=== PATIENT | female | born 2000 | race Caucasian/White ===

== ENCOUNTER 2024-03-21 07:51 | Emergency (ER) | payer OTHER ==
[~2024-03-21] VITALS: Ht 154.9 cm; Wt 64.1 kg
[2024-03-21 08:32] LABS: BASO # 0.1 10^3/uL (0.0-0.2); BASO % 0.6 % (0.0-1.0); EOS % 0.4 % (0.0-3.0); HEMATOCRIT 42.5 % (36.0-47.0); HEMOGLOBIN 13.8 g/dl (12.0-15.5); LYMPH # 2.2 10^3/uL (1.5-5.0); LYMPH % 26.4 % (24.0-44.0); MEAN CORPUSCULAR HEMOGLOBIN 27.6 pg (27.0-33.0); MEAN CORPUSCULAR HGB CONC 32.5 g/dl (32.0-36.5); MONO # 0.4 10^3/uL (0.0-0.8); MONO % 4.9 % (2.0-8.0); NEUTROPHILS # 5.7 10^3/uL (1.5-8.5); NEUTROPHILS % 67.3 % (36.0-66.0); PLATELET COUNT, AUTOMATED 258 10^3/uL (150-450); WHITE BLOOD COUNT 8.4 10^3/uL (4.0-10.0)
[2024-03-21 08:57] LABS: LIPASE 48 U/L (12-53)
[2024-03-21] MEDS: NS 500 ML IV ONE (08:57)
[2024-03-21 08:59] LABS: ALBUMIN 4.4 G/DL (3.2-5.2); ALKALINE PHOSPHATASE 64 U/L (46-116); ALT/SGPT 35 U/L (7.0-40); AST/SGOT 17 U/L (<34); BILIRUBIN,DIRECT 0.1 MG/DL (<0.4); BILIRUBIN,TOTAL 0.6 MG/DL (0.3-1.2); BLOOD UREA NITROGEN 14 MG/DL (9-23); CALCIUM LEVEL 9.8 MG/DL (8.5-10.1); CARBON DIOXIDE LEVEL 23 MMOL/L (20-31); CHLORIDE LEVEL 108 MMOL/L (98-107); CREATININE FOR GFR 0.81 MG/DL (0.55-1.30); GLOMERULAR FILTRATION RATE > 60.0 (>60); GLUCOSE, FASTING 108 MG/DL (60-100); POTASSIUM SERUM 4.2 MMOL/L (3.5-5.1); SODIUM LEVEL 139 MMOL/L (136-145); TOTAL PROTEIN 7.5 G/DL (5.7-8.2)
[2024-03-21 09:02] LABS: HCG, SERUM QUALITATIVE NEGATIVE (NEGATIVE)
[2024-03-21 09:45] VITALS: BP 101/60
[2024-03-21 09:53] VITALS: TEMP 96.6; O2SAT 100
== END 2024-03-21 10:00 | disposition home or self-care (01) ==
LOC: EDBD 07:51 → M ED 07:51
DX: R55 Syncope and collapse (principal); R10.9 Unspecified abdominal pain; R00.1 Bradycardia, unspecified; F17.200 Nicotine dependence, unspecified, uncomplicated

== ENCOUNTER 2024-08-01 08:12 | Emergency (ER) | payer OTHER ==
[~2024-08-01] VITALS: Ht 154.9 cm; Wt 63.6 kg
[2024-08-01 09:30] LABS: HEMATOCRIT 39.3 % (36.0-47.0); HEMOGLOBIN 13.1 g/dl (12.0-15.5); MEAN CORPUSCULAR HEMOGLOBIN 29.4 pg (27.0-33.0); MEAN CORPUSCULAR HGB CONC 33.3 g/dl (32.0-36.5); MEAN CORPUSCULAR VOLUME 88.1 fl (80.0-96.0); PLATELET COUNT, AUTOMATED 245 10^3/uL (150-450); RED BLOOD COUNT 4.46 10^6/uL (4.00-5.40); WHITE BLOOD COUNT 6.1 10^3/uL (4.0-10.0)
[2024-08-01 09:37] LABS: APPEARANCE, URINE CLEAR (CLEAR); BACTERIA, URINE AUTO NEGATIVE (NEGATIVE); BILIRUBIN, URINE AUTO NEGATIVE (NEGATIVE); BLOOD, URINE BLOOD 2+ (NEGATIVE); COLOR, URINE YELLOW (YELLOW); GLUCOSE, URINE (UA) AUTO NEGATIVE (NEGATIVE); KETONE, URINE AUTO NEGATIVE (NEGATIVE); LEUKOCYTE ESTERASE, URINE AUTO NEGATIVE (NEGATIVE); MUCUS, URINE SMALL (NEGATIVE); NITRITE, URINE AUTO NEGATIVE (NEGATIVE); PROTEIN, URINE AUTO NEGATIVE (NEGATIVE); RBC, URINE AUTO 11 /HPF (0-3); SPECIFIC GRAVITY URINE AUTO 1.017 (1.002-1.035); SQUAMOUS EPITHELIAL CELL UR AU 2 /HPF (0-6); UROBILINOGEN, URINE AUTO 0.2 mg/dL (0.0-2.0); WBC, URINE AUTO 0 /HPF (0-3)
[2024-08-01 09:42] LABS: INR 1.08; PARTIAL THROMBOPLASTIN TIME 30.1 SECONDS (24.8-34.2); PROTHROMBIN TIME 13.7 SECONDS (12.5-14.5)
[2024-08-01 10:00] LABS: BLOOD UREA NITROGEN 12 MG/DL (9-23); CALCIUM LEVEL 9.8 MG/DL (8.5-10.1); CARBON DIOXIDE LEVEL 26 MMOL/L (20-31); CHLORIDE LEVEL 107 MMOL/L (98-107); CREATININE FOR GFR 0.62 MG/DL (0.55-1.30); GLOMERULAR FILTRATION RATE > 60.0 (>60); GLUCOSE, FASTING 104 MG/DL (60-100); POTASSIUM SERUM 3.7 MMOL/L (3.5-5.1); SODIUM LEVEL 140 MMOL/L (136-145)
[2024-08-01 10:05] LABS: HCG, SERUM QUALITATIVE NEGATIVE (NEGATIVE)
[2024-08-01 11:08] VITALS: BP 99/54; TEMP 97.4; O2SAT 98
[2024-08-01 11:13] LABS: Trichomonas vaginalis (AMP) NOT DETECTED (NEGATIVE)
[2024-08-01 11:36] LABS: GC DNA AMPLIFICATION NEGATIVE (NEGATIVE)
== END 2024-08-01 12:06 | disposition home or self-care (01) ==
LOC: M ED 08:12
DX: N83.202 Unspecified ovarian cyst, left side (principal); N92.1 Excessive and frequent menstruation with irregular cycle; Z87.42 Personal history of other diseases of the female genital tract

== ENCOUNTER 2024-09-02 11:49 | Emergency (ER) | payer OTHER ==
[~2024-09-02] VITALS: Ht 154.9 cm; Wt 63.6 kg
[2024-09-02 12:45] LABS: BASO # 0.1 10^3/uL (0.0-0.2); BASO % 0.7 % (0.0-1.0); EOS # 0.1 10^3/uL (0.0-0.5); EOS % 0.7 % (0.0-3.0); HEMATOCRIT 41.9 % (36.0-47.0); HEMOGLOBIN 13.6 g/dl (12.0-15.5); LYMPH # 2.9 10^3/uL (1.5-5.0); LYMPH % 33.8 % (24.0-44.0); MEAN CORPUSCULAR HEMOGLOBIN 28.9 pg (27.0-33.0); MEAN CORPUSCULAR HGB CONC 32.5 g/dl (32.0-36.5); MEAN CORPUSCULAR VOLUME 89.1 fl (80.0-96.0); MONO # 0.4 10^3/uL (0.0-0.8); MONO % 4.2 % (2.0-8.0); NEUTROPHILS # 5.1 10^3/uL (1.5-8.5); NEUTROPHILS % 60.5 % (36.0-66.0); PLATELET COUNT, AUTOMATED 291 10^3/uL (150-450); WHITE BLOOD COUNT 8.5 10^3/uL (4.0-10.0)
[2024-09-02 13:02] LABS: BLOOD UREA NITROGEN 11 MG/DL (9-23); CALCIUM LEVEL 9.9 MG/DL (8.5-10.1); CARBON DIOXIDE LEVEL 29 MMOL/L (20-31); CHLORIDE LEVEL 107 MMOL/L (98-107); CREATININE FOR GFR 0.68 MG/DL (0.55-1.30); GLOMERULAR FILTRATION RATE > 60.0 (>60); GLUCOSE, FASTING 89 MG/DL (60-100); POTASSIUM SERUM 3.8 MMOL/L (3.5-5.1); SODIUM LEVEL 143 MMOL/L (136-145)
[2024-09-02 13:07] LABS: HCG, SERUM QUALITATIVE NEGATIVE (NEGATIVE)
[2024-09-02 15:34] LABS: ALBUMIN 4.1 G/DL (3.2-5.2); ALKALINE PHOSPHATASE 62 U/L (35-104); ALT/SGPT 23 U/L (7.0-40); AST/SGOT 12 U/L (<34); BILIRUBIN,DIRECT 0.1 MG/DL (<0.4); BILIRUBIN,TOTAL 0.4 MG/DL (0.3-1.2); TOTAL PROTEIN 7.9 G/DL (5.7-8.2)
[2024-09-02] MEDS: ONDANSETRON 4MG ORAL DISINTEGRATING TAB PO ONE (15:37)
[2024-09-02] MEDS: KETOROLAC 60MG 2ML VIAL IM ONE (15:37)
[2024-09-02] MEDS ORDERED: ONDA-282 PO (16:59)
[2024-09-02] MEDS ORDERED: NAPR-837 PO (16:59)
[2024-09-02 17:07] VITALS: BP 112/58; TEMP 98.4; O2SAT 98
== END 2024-09-02 17:09 | disposition home or self-care (01) ==
LOC: M ED 11:49
DX: R10.9 Unspecified abdominal pain (principal); R10.2 Pelvic and perineal pain; R11.10 Vomiting, unspecified; F17.200 Nicotine dependence, unspecified, uncomplicated; F32.A Depression, unspecified; F41.9 Anxiety disorder, unspecified; Z87.42 Personal history of other diseases of the female genital tract; Z79.83 Long term (current) use of bisphosphonates; Z79.1 Long term (current) use of non-steroidal anti-inflammatories (NSAID)
CPT/HCPCS: 74176; 76830; 76856; 80048; 80076; 81001; 84703; 85025; 93976; 96372; 99283; J1885

== ENCOUNTER 2024-12-23 10:33 | Emergency (ER) | payer OTHER ==
[~2024-12-23] VITALS: Ht 154.9 cm; Wt 66.1 kg
[~2024-12-23 10:33] MED LIST: NAPR-837 PO; ONDA-282 PO
[2024-12-23] MEDS ORDERED: MULTTAB20 PO (10:41)
[2024-12-23] MEDS ORDERED: ACET1TAB55 PO (10:41)
[2024-12-23 11:12] LABS: APPEARANCE, URINE HAZY (CLEAR); BACTERIA, URINE AUTO NEGATIVE (NEGATIVE); BILIRUBIN, URINE AUTO NEGATIVE (NEGATIVE); BLOOD, URINE BLOOD NEGATIVE (NEGATIVE); COLOR, URINE YELLOW (YELLOW); GLUCOSE, URINE (UA) AUTO NEGATIVE (NEGATIVE); KETONE, URINE AUTO NEGATIVE (NEGATIVE); LEUKOCYTE ESTERASE, URINE AUTO 3+ (NEGATIVE); MUCUS, URINE SMALL (NEGATIVE); NITRITE, URINE AUTO NEGATIVE (NEGATIVE); PROTEIN, URINE AUTO NEGATIVE (NEGATIVE); RBC, URINE AUTO 1 /HPF (0-3); SPECIFIC GRAVITY URINE AUTO 1.014 (1.002-1.035); SQUAMOUS EPITHELIAL CELL UR AU 6 /HPF (0-6); UROBILINOGEN, URINE AUTO 0.2 mg/dL (0.0-2.0); WBC, URINE AUTO 12 /HPF (0-3)
[2024-12-23 13:15] VITALS: BP 104/55; TEMP 97.8; O2SAT 100
== END 2024-12-23 13:17 | disposition home or self-care (01) ==
LOC: M ED 10:33
DX: O26.891 Other specified pregnancy related conditions, first trimester (principal); S76.011A Strain of muscle, fascia and tendon of right hip, initial encounter; Z3A.01 Less than 8 weeks gestation of pregnancy; Z79.1 Long term (current) use of non-steroidal anti-inflammatories (NSAID); Z79.899 Other long term (current) drug therapy; Y92.9 Unspecified place or not applicable; Y93.89 Activity, other specified; Y99.9 Unspecified external cause status

== ENCOUNTER 2025-01-05 13:24 | Emergency (ER) | payer OTHER ==
[~2025-01-05] VITALS: Ht 154.9 cm; Wt 65.5 kg
[~2025-01-05 13:24] MED LIST changes: +ACET1TAB55 PO; +MULTTAB20 PO
[2025-01-05] MEDS: ONDANSETRON 4MG 2ML VIAL IV ONE (15:02)
[2025-01-05 15:09] LABS: BASO # 0.1 10^3/uL (0.0-0.2); BASO % 0.5 % (0.0-1.0); EOS % 0.2 % (0.0-3.0); HEMATOCRIT 38.5 % (36.0-47.0); HEMOGLOBIN 12.8 g/dl (12.0-15.5); LYMPH # 2.7 10^3/uL (1.5-5.0); LYMPH % 24.8 % (24.0-44.0); MEAN CORPUSCULAR HEMOGLOBIN 29.1 pg (27.0-33.0); MEAN CORPUSCULAR HGB CONC 33.2 g/dl (32.0-36.5); MEAN CORPUSCULAR VOLUME 87.5 fl (80.0-96.0); MONO # 0.6 10^3/uL (0.0-0.8); MONO % 5.2 % (2.0-8.0); NEUTROPHILS # 7.6 10^3/uL (1.5-8.5); NEUTROPHILS % 69.1 % (36.0-66.0); PLATELET COUNT, AUTOMATED 253 10^3/uL (150-450)
[2025-01-05 15:41] LABS: BLOOD UREA NITROGEN 9 MG/DL (9-23); CALCIUM LEVEL 9.1 MG/DL (8.5-10.1); CARBON DIOXIDE LEVEL 26 MMOL/L (20-31); CHLORIDE LEVEL 104 MMOL/L (98-107); CREATININE FOR GFR 0.51 MG/DL (0.55-1.30); GLOMERULAR FILTRATION RATE > 60.0 (>60); GLUCOSE, FASTING 74 MG/DL (60-100); SODIUM LEVEL 138 MMOL/L (136-145)
[2025-01-05] MEDS ORDERED: ONDA-282 PO (15:59)
[2025-01-05 16:07] VITALS: BP 108/61; TEMP 98; O2SAT 100
[2025-01-05 16:07] LABS: HCG, SERUM QUANTITATIVE 162403.8 MIU/ML (<4.2)
== END 2025-01-05 16:27 | disposition home or self-care (01) ==
LOC: M ED 13:24
DX: O21.9 Vomiting of pregnancy, unspecified (principal); O20.8 Other hemorrhage in early pregnancy; Z79.83 Long term (current) use of bisphosphonates; Z79.1 Long term (current) use of non-steroidal anti-inflammatories (NSAID); Z3A.08 8 weeks gestation of pregnancy
CPT/HCPCS: 76801; 80048; 84702; 85025; 93976; 96374; 99284; J2405

== ENCOUNTER 2025-01-31 11:13 | Emergency (ER) | payer OTHER ==
[~2025-01-31] VITALS: Ht 154.9 cm; Wt 62.5 kg
[2025-01-31 12:02] LABS: BASO % 0.5 % (0.0-1.0); EOS % 0.2 % (0.0-3.0); HEMATOCRIT 39.7 % (36.0-47.0); HEMOGLOBIN 13.4 g/dl (12.0-15.5); LYMPH # 1.9 10^3/uL (1.5-5.0); LYMPH % 21.8 % (24.0-44.0); MEAN CORPUSCULAR HEMOGLOBIN 29.3 pg (27.0-33.0); MEAN CORPUSCULAR HGB CONC 33.8 g/dl (32.0-36.5); MEAN CORPUSCULAR VOLUME 86.9 fl (80.0-96.0); MONO # 0.3 10^3/uL (0.0-0.8); MONO % 3.7 % (2.0-8.0); NEUTROPHILS # 6.3 10^3/uL (1.5-8.5); NEUTROPHILS % 73.4 % (36.0-66.0); PLATELET COUNT, AUTOMATED 269 10^3/uL (150-450); RED BLOOD COUNT 4.57 10^6/uL (4.00-5.40); WHITE BLOOD COUNT 8.6 10^3/uL (4.0-10.0)
[2025-01-31 12:33] LABS: BLOOD UREA NITROGEN 8 MG/DL (9-23); CALCIUM LEVEL 8.8 MG/DL (8.5-10.1); CARBON DIOXIDE LEVEL 24 MMOL/L (20-31); CHLORIDE LEVEL 103 MMOL/L (98-107); CREATININE FOR GFR 0.54 MG/DL (0.55-1.30); GLOMERULAR FILTRATION RATE > 90.0 (>60); GLUCOSE, FASTING 82 MG/DL (60-100); MAGNESIUM LEVEL 1.9 MG/DL (1.8-2.4); POTASSIUM SERUM 3.7 MMOL/L (3.5-5.1); SODIUM LEVEL 139 MMOL/L (136-145)
[2025-01-31 12:36] LABS: FREE T4 1.04 NG/DL (0.89-1.76); THYROID STIMULATING HORMONE 1.194 uIU/ML (0.55-4.78)
[2025-01-31 12:37] LABS: HCG, SERUM QUALITATIVE POSITIVE (NEGATIVE)
[2025-01-31] MEDS: NS (Normal Saline) 0.9% 1,000 ML IV ONE (14:10)
[2025-01-31 14:26] LABS: HCG, SERUM QUANTITATIVE 128390.8 MIU/ML (<4.2)
[2025-01-31 15:35] VITALS: BP 102/57; TEMP 97.7; O2SAT 100
== END 2025-01-31 15:37 | disposition home or self-care (01) ==
LOC: M ED 11:13
DX: O26.811 Pregnancy related exhaustion and fatigue, first trimester (principal); R55 Syncope and collapse; Z3A.11 11 weeks gestation of pregnancy; Z79.83 Long term (current) use of bisphosphonates; Z79.1 Long term (current) use of non-steroidal anti-inflammatories (NSAID)